=== PATIENT | female | born 1955 | race Caucasian/White ===

== ENCOUNTER → 2018-02-01 22:26 | Emergency (ER) | payer BC ==
--- NOTE | 2018-02-01 23:31 | ED ---
Lower Extremity - HPI Summary HPI Summary: Patient here with right foot pain after dropping a piece of wood stove wood on her foot earlier this evening. She has focal area of tenderness, pain and swelling. She is able to ambulate however this is painful. Denies numbness tingling or weakness. She has tried ice but has not taken anything by mouth to reduce pain and swelling. No previous injuries or issues with this foot. She declines pain medication here tonight. - History of Current Complaint Chief Complaint: EDExtremityLower Stated Complaint: RT FT INJURY Time Seen by Provider: 02/01/18 23:08 Hx Obtained From: Patient Pain Intensity: 5 - Allergies/Home Medications Allergies/Adverse Reactions: Allergies Allergy/AdvReac Type Severity Reaction Status Date / Time Cats Allergy Intermediate Sneezing Uncoded 02/01/18 22:50 Milk Allergy Intermediate Congestion Uncoded 02/01/18 22:50 Pollen Allergy Intermediate Sneezing Uncoded 02/01/18 22:50 dust Allergy Sneezing Uncoded 02/01/18 22:50 PMH/Surg Hx/FS Hx/Imm Hx Previously Healthy: Yes Endocrine/Hematology History: Denies: Hx Anticoagulant Therapy, Hx Blood Disorders, Hx Diabetes, Hx Thyroid Disease, Hx Unexplained Bleeding Cardiovascular History: Denies: Hx Hypertension Respiratory History: Denies: Hx Asthma, Hx Chronic Obstructive Pulmonary Disease (COPD) GI History: Denies: Hx Ulcer Musculoskeletal History: Reports: Hx Osteoporosis - Surgical History Surgery Procedure, Year, and Place: Right knee cap 1967 & 1972 Infectious Disease History: No Infectious Disease History: Denies: Hx Hepatitis, Hx Human Immunodeficiency Virus (HIV), History Other Infectious Disease, Traveled Outside the [place] in Last 30 Days - Family History Known Family History: Positive: None Negative: Hypertension - Social History Alcohol Use: Occasionally Hx Substance Use: No Substance Use Type: Reports: None Hx Tobacco Use: No Smoking Status (MU): Never Smoked Tobacco Review of Systems Constitutional: Negative Negative: Vomiting, Nausea Positive: no symptoms reported Positive: Arthralgia, Myalgia, Edema. Negative: Decreased ROM - patient has pain with range of motion of toes and ankle and area of foot however she is able to move all joints Skin: Negative Neurological: Negative Psychological: Normal All Other Systems Reviewed And Are Negative: Yes Physical Exam Triage Information Reviewed: Yes Vital Signs On Initial Exam: Initial Vitals Temp Pulse Resp BP Pulse Ox 97.8 F 67 18 154/99 95 02/01/18 22:46 02/01/18 22:46 02/01/18 22:46 02/01/18 22:46 02/01/18 22:46 Vital Signs Reviewed: Yes Appearance: Positive: Well-Appearing, Well-Nourished, Pain Distress - Mild while seated in wheelchair Skin: Positive: Warm, Skin Color Reflects Adequate Perfusion, Dry - No erythema , no ecchymosis, no skin breakdown over affected area of the dorsal medial instep of right foot Eyes: Positive: EOMI ENT: Positive: Hearing grossly normal, Pharynx normal Respiratory/Lung Sounds: Positive: Breath Sounds Present Cardiovascular: Positive: Pulses are Symmetrical in both Upper and Lower Extremities Musculoskeletal: Positive: Strength/ROM Intact, Pain @ - Affected area on right foot as mentioned above is tender to palpationno gross deformity, no crepitus Neurological: Positive: Normal, Sensory/Motor Intact, Alert, Oriented to Person Place, Time, CN Intact II-III Psychiatric: Positive: Normal Diagnostics - Vital Signs Vital Signs Temp Pulse Resp BP Pulse Ox 02/01/18 22:46 97.8 F 67 18 154/99 95 - Laboratory Lab Statement: Any lab studies that have been ordered have been reviewed, and results considered in the medical decision making process. Lower Extremity Course/Dx - Course Course Of Treatment: Rt foot XR (wet read): No acute fracture dislocation - Diagnoses Provider Diagnoses: Contusion of foot, right Discharge - Discharge Plan Condition: Stable Disposition: HOME Patient Education Materials: Contusion in Adults (ED) Referrals: Luis Manuel Nunez DO [Primary Care Provider] - Additional Instructions: Rest, ice, elevate, apply Mitul wrap and avoid weightbearing until this is tolerable by using crutches You may alternate ibuprofen and acetaminophen as needed for pain or apply topical analgesic such as Biofreeze, Arnica, etc. Monitor symptoms over next 1-2 weeksif they persist, follow up with PCP. Call to schedule an appointment. If he developed numbness tingling weakness or significant skin changes such as coolness, swelling or streaking, return to the emergency department
[2018-02-02 00:12] VITALS: BP 149/81
--- NOTE | 2018-02-02 07:30 | RAD ---
INDICATION: Right foot injury. TECHNIQUE: 3 views of the right foot were obtained. FINDINGS: The bones are in normal alignment. On one view there is suggestion of a nondisplaced fracture of the distal aspect of the fifth proximal phalanx. Joint spaces appear maintained. The results of this exam were discussed with the emergency department charge nurse Carol. IMPRESSION: PROBABLE NONDISPLACED FRACTURE OF THE FIFTH PROXIMAL PHALANX.
== END | disposition home or self-care (01) ==
LOC: ED 22:26
DX: S90.31XA Contusion of right foot, initial encounter (principal); M79.671 Pain in right foot; W20.8XXA Other cause of strike by thrown, projected or falling object, initial encounter; Y92.9 Unspecified place or not applicable
CPT/HCPCS: 99282